=== PATIENT | male | born 1950 | race Caucasian/White ===

== ENCOUNTER 2023-05-15 05:18 | Day surgery (SDC) | payer OTHER ==
[2023-05-15] MEDS ORDERED: fentaNYL 100 MCG/2 ML SDV IV ONE ×3 (05:19→06:31)
[2023-05-15] MEDS ORDERED: Midazolam 1 MG/ML 2 ML SDV IV ONE ×5 (05:19→07:08)
[2023-05-15] MEDS ORDERED: Dextrose 5%-0.45% NaCl 1,000 ML IV SCH (05:30)
[2023-05-15] MEDS ORDERED: Midazolam 1 MG/ML 2 ML SDV ONE (06:10)
[2023-05-15] MEDS ORDERED: fentaNYL 100 MCG/2 ML SDV ONE (06:10)
== END 2023-05-15 08:31 | disposition home or self-care (01) ==
LOC: DL.ENDO 05:18
PROVIDERS: ATTEND Internal Medicine Gastroenterology
DX: D12.5 Benign neoplasm of sigmoid colon (principal); D12.4 Benign neoplasm of descending colon; D12.3 Benign neoplasm of transverse colon; K57.30 Diverticulosis of large intestine without perforation or abscess without bleeding; K64.8 Other hemorrhoids; E66.09 Other obesity due to excess calories; Z80.0 Family history of malignant neoplasm of digestive organs; Z98.890 Other specified postprocedural states; Z68.29 Body mass index [BMI] 29.0-29.9, adult
CPT/HCPCS: J2250; J3010; J7042